=== PATIENT | female | born 1945 | race Caucasian/White ===

== ENCOUNTER 2020-05-07 09:55 | Emergency (ER) | payer OTHER, SELFPAY ==
[~2020-05-07 09:55] MED LIST: AMLODIPINE BESY10 MG PO; ARICEPT 5MG TABL5 MG PO; ASPIRIN EC81 MG PO; AUGMENTIN 875-1 EACH PO; AZITHROMYCIN250 MG PO; FOLIC ACID1 M1 PO; MOBIC7.5 MG PO; POTASSIUM CHLO10 MEQ PO; PREDNISONE 20MG20 MG PO; VITAMIN D32000 UNIT PO; ZOFRAN4 MG PO; [UNRECOGNIZED DRUG - REMARK] TOP
[2020-05-07 13:59] LABS: BASOPHIL 0.3 % (0-2); EOSINOPHIL 0.1 % (0-7); HCT 42.8 % (37.0-47.0); HGB 13.7 g/dl (12.5-16.0); MCH 26.7 pg (25.0-31.0); MCV 83.3 fL (78.0-100.0); MONOCYTE 4.2 % (0-12); MPV 11.6 fL (6.0-9.5); NEUTROPHIL 77.1 % (41-80); NRBC 0; PLT 189 K/uL (150-400); RBC 5.14 M/uL (4.20-5.40); RDW 13.4 % (11.5-14.0); WBC 6.9 K/uL (4.0-10.5)
[2020-05-07 14:13] LABS: BUN/CREAT RATIO (CALC) 11.8 RATIO; CREATININE 1.02 mg/dL (0.51-0.95); POTASSIUM 3.8 mmol/L (3.5-5.1)
[2020-05-07 14:35] LABS: BILIRUBIN NEGATIVE (NEGATIVE); BLOOD TRACE-INTACT Ery/uL (NEGATIVE); CLARITY CLEAR (CLEAR); COLOR YELLOW (YELLOW); GLUCOSE (U) NORMAL (NORMAL); LEUKOCYTES 2+ Leu/uL (NEGATIVE); NITRITE NEGATIVE (NEGATIVE); PROTEIN TRACE (LOW) mg/dL (NEGATIVE); UROBILINOGEN 0.2 mg/dL (0.2-1.0)
[2020-05-07 14:46] LABS: BACTERIA 1+; URINARY RBC RARE
[2020-05-07] MEDS ORDERED: KEFLEX250 MG PO (15:34)
== END 2020-05-07 16:03 | disposition home or self-care (01) ==
LOC: FER 09:55
PROVIDERS: Emergency Medicine
DX: N39.0 Urinary tract infection, site not specified (principal); R42 Dizziness and giddiness; I10 Essential (primary) hypertension; F03.90 Unspecified dementia, unspecified severity, without behavioral disturbance, psychotic disturbance, mood disturbance, and anxiety
CPT/HCPCS: 36415; 80048; 81001; 85025; 87088; J0696; J7040

== ENCOUNTER 2020-12-21 22:27 | Inpatient (IN) | payer OTHER ==
[~2020-12-21] VITALS: Ht 167.6 cm; Wt 58.7 kg
[~2020-12-21 22:27] MED LIST changes: +KEFLEX250 MG PO
[2020-12-21 23:51] LABS: BASOPHIL 0.2 % (0-2); EOSINOPHIL 0.2 % (0-7); HCT 42.2 % (37.0-47.0); HGB 13.7 g/dl (12.5-16.0); LYMPHOCYTE 4.5 % (15-48); MCH 27.1 pg (25.0-31.0); MCHC 32.5 g/dL (32.0-36.0); MCV 83.4 fL (78.0-100.0); MPV 11.4 fL (6.0-9.5); NEUTROPHIL 90.8 % (41-80); NRBC 0; PLT 164 K/uL (150-400); RBC 5.06 M/uL (4.20-5.40); WBC 12.8 K/uL (4.0-10.5)
[2020-12-22 00:18] LABS: BILIRUBIN - TOTAL 0.7 mg/dL (0.2-1.0); BUN/CREAT RATIO (CALC) 17.1 RATIO; CREATININE 1.17 mg/dL (0.51-0.95); GLOBULIN (CALCULATION) 3.1 g/dL; TOTAL PROTEIN 7.1 g/dL (6.4-8.2)
[2020-12-22 01:31] LABS: LACTIC ACID 2.2 mmol/L (0.4-1.9)
[2020-12-22 02:18] LABS: BILIRUBIN NEGATIVE (NEGATIVE); BLOOD NEGATIVE Ery/uL (NEGATIVE); CLARITY CLEAR (CLEAR); COLOR YELLOW (YELLOW); GLUCOSE (U) NORMAL (NORMAL); LEUKOCYTES 2+ Leu/uL (NEGATIVE); NITRITE NEGATIVE (NEGATIVE); PROTEIN NEGATIVE (NEGATIVE); SPECIFIC GRAVITY 1.015 (1.001-1.030); UROBILINOGEN 0.2 mg/dL (0.2-1.0)
[2020-12-22 02:28] LABS: BACTERIA TRACE; URINARY RBC RARE
[2020-12-22 02:29] LABS: CALCIUM OXALATE CRYSTALS TRACE
[2020-12-22 03:00] LABS: CORONAVIRUS 2019 SARS-COV-2 NEGATIVE (NEGATIVE); INFLUENZA A NAA NEGATIVE (NEGATIVE)
[2020-12-22 05:48] LABS: HCT 38.7 % (37.0-47.0); HGB 12.5 g/dl (12.5-16.0); MCH 27.3 pg (25.0-31.0); MCHC 32.3 g/dL (32.0-36.0); MCV 84.5 fL (78.0-100.0); MPV 11.1 fL (6.0-9.5); RBC 4.58 M/uL (4.20-5.40); WBC 10.1 K/uL (4.0-10.5)
[2020-12-22 07:01] LABS: ALBUMIN 3.4 g/dL (3.4-5.0); BILIRUBIN - TOTAL 0.9 mg/dL (0.2-1.0); BUN/CREAT RATIO (CALC) 16.8 RATIO; CREATININE 1.13 mg/dL (0.51-0.95); MAGNESIUM 1.6 mg/dL (1.8-2.4); PHOSPHORUS 3.5 mg/dL (2.6-4.7); POTASSIUM 4.2 mmol/L (3.5-5.1); TOTAL PROTEIN 6.4 g/dL (6.4-8.2)
[2020-12-22 10:16] LABS: LACTIC ACID 1.5 mmol/L (0.4-1.9)
[2020-12-22 14:11] LABS: LACTIC ACID 2.5 mmol/L (0.4-1.9)
[2020-12-23 05:32] LABS: BASOPHIL 0.1 % (0-2); EOSINOPHIL 0.4 % (0-7); HCT 35.6 % (37.0-47.0); HGB 11.4 g/dl (12.5-16.0); LYMPHOCYTE 16.5 % (15-48); MCH 27.5 pg (25.0-31.0); MCV 85.8 fL (78.0-100.0); MONOCYTE 3.2 % (0-12); MPV 11.4 fL (6.0-9.5); NEUTROPHIL 79.6 % (41-80); NRBC 0; PLT 125 K/uL (150-400); RBC 4.15 M/uL (4.20-5.40); RDW 14.3 % (11.5-14.0); WBC 9.6 K/uL (4.0-10.5)
[2020-12-23 05:50] LABS: ALBUMIN 2.8 g/dL (3.4-5.0); BILIRUBIN - TOTAL 0.9 mg/dL (0.2-1.0); CREATININE 1.07 mg/dL (0.51-0.95); GLOBULIN (CALCULATION) 3.2 g/dL; POTASSIUM 3.6 mmol/L (3.5-5.1)
[2020-12-23] MEDS ORDERED: MACROBID100 MG PO (08:24)
[2020-12-23] MEDS ORDERED: LACTOBACILLUS1 EACH PO (08:24)
--- NOTE | 2020-12-23 10:38 | NUR ---
12/23/20 Ms. Adrian lives at home with her daughter, Juliana Kim ([phone]) and son-in-law. Ms. Adrian was able to state her name. She was unable to provide or correctly name her daughter. She states that she does not use DME or have services. - A voice mail has been left for Ms. Kim for the purpose of discussing any discharge planning or community resources needs.
== END 2020-12-23 16:30 | disposition home or self-care (01) | DRG 177 ==
LOC: FER 22:27 → FTCU 12-22 04:00
PROVIDERS: Emergency Medicine Emergency Medical Services; Family Medicine; Nurse Practitioner; ADMIT Internal Medicine
DX: J69.0 Pneumonitis due to inhalation of food and vomit (principal); J96.01 Acute respiratory failure with hypoxia; N30.00 Acute cystitis without hematuria; N17.9 Acute kidney failure, unspecified; I10 Essential (primary) hypertension; Z20.822 Contact with and (suspected) exposure to COVID-19; E78.5 Hyperlipidemia, unspecified; G30.9 Alzheimer's disease, unspecified; F02.80 Dementia in other diseases classified elsewhere, unspecified severity, without behavioral disturbance, psychotic disturbance, mood disturbance, and anxiety; E56.9 Vitamin deficiency, unspecified; Z79.82 Long term (current) use of aspirin; Z79.899 Other long term (current) drug therapy; Z98.890 Other specified postprocedural states
CPT/HCPCS: 36415; 36600; 71045; 71250; 76705; 80053; 81001; 82803; 83605; 83615; 83690; 83735; 84100; 84145; 84484; 85025; 87040; 87076; 87088; 93005; 94010; 94667; 94668; 97162; 97165; 97530-GP; 97535; C9113; J1650; J2405; J2543; J7030; J7120; U0002